=== PATIENT | female | born 1980 | race Caucasian/White ===

== ENCOUNTER → 2021-07-05 | Outpatient (CLI) | payer OTHER ==
[~2021-07-05] MED LIST: IBUPROFEN600 MG PO; IBUPROFEN800 MG PO; KEFLEX500 MG PO; PERCOCET 10-321 EACH PO; TESSALON PERLE100 MG PO; ULTRAM50 MG PO; VENTOLIN HFA 66.7 GM INH; VIT C PO; VIT D PO; ZANTAC150 MG PO; ZOFRAN ODT 4 MG4 MG PO; ZOFRAN4 MG PO
== END ==
LOC: HEART 5 08:00
DX: R00.2 Palpitations (principal)

== ENCOUNTER → 2021-08-10 | Outpatient (CLI) | payer OTHER | LOC: KOH-I 15:06 | DX: K59.00 Constipation, unspecified (principal) | CPT/HCPCS: 74018 ==